=== PATIENT | female | born 1965 | race Caucasian/White ===

== ENCOUNTER 2016-09-08 11:15 | Emergency (ER) | payer MEDICAID ==
[~2016-09-08] VITALS: Ht 160 cm; Wt 63.5 kg
--- NOTE | 2016-09-08 11:18 | NUR ---
Pt assisted in restroom, unable to bear weight on left ankle. Pt states that she was hiking and slipped into a nightmute. Cardboard splint applied by EMS, pt refused transport.
[2016-09-08] MEDS ORDERED: IBUPROFEN 600 MG TABLET PO ONE (11:30)
--- NOTE | 2016-09-08 11:30 | NUR ---
Wheelchair pt to bed 7
--- NOTE | 2016-09-08 11:45 | NUR ---
Pt wet pants and wet shoe/sock removed. Warm blankets provided. Care endorsed to JENNIFER Bustos
--- NOTE | 2016-09-08 12:00 | NUR ---
Dr. Baker at bedside for evaluation
[2016-09-08 12:02] VITALS: BP 153/101; PULSE 101; RESP 18; TEMP 97.3; O2SAT 99
--- NOTE | 2016-09-08 12:08 | NUR ---
During pt assessment c/o 04/30 pain to left lower leg/ankle. pt informed that I had Motrin 600mg per Dr. Baker's order. Pt states she does not take pain medication. Informed her I could give her an ice pack which she agreed, then stated "Do I need to go to another hospital I am in so much pain" explain to the patient that we have Motrin to treat her pain, pt stated "I don't know if that will be enough" Informed pt I could ask Dr. Baker for different medication for pain managment. Pt stated "I don't take pain medication", Ice pack provided, in regard to the motrin 600mg pt stated "I will think about it"
--- NOTE | 2016-09-08 12:18 | NUR ---
Bedside commode provided for patient. Denied needing assistance
--- NOTE | 2016-09-08 12:45 | NUR ---
BOOT SPLINT APPLIED TO LEFT LEG, PT TOLERATED WELL, MEASURED FOR CRUTCHES AND DEMONSTRATED PROPER USE.
[2016-09-08 12:55] VITALS: BP 131/77; PULSE 88; RESP 16; TEMP 97.3; O2SAT 99
--- NOTE | 2016-09-08 12:55 | NUR ---
Patient given written and verbal discharge instructions and verbalizes understanding. ER MD discussed with patient the results and treatment provided. Given copies of tests performed in ER. Patient in stable condition. ID arm band removed. Rx of NONE given. Patient educated on pain management and to follow up with PMD. Pain Scale 0/10 Opportunity for questions provided and answered.
== END 2016-09-08 12:55 | disposition home or self-care (01) ==
LOC: SED 11:15
DX: S93.402A Sprain of unspecified ligament of left ankle, initial encounter (principal); S90.32XA Contusion of left foot, initial encounter; W19.XXXA Unspecified fall, initial encounter; Y93.89 Activity, other specified; Y92.89 Other specified places as the place of occurrence of the external cause; Y99.8 Other external cause status
CPT/HCPCS: 73650-TC; 99284

== ENCOUNTER 2019-03-11 16:23 | Outpatient (CLI) | payer OTHER | END 2019-03-11 21:15 | disposition home or self-care (01) | LOC: SUS 16:23 | PROVIDERS: ATTEND Internal Medicine | DX: E04.9 Nontoxic goiter, unspecified (principal); N20.0 Calculus of kidney | CPT/HCPCS: 76536-TC ==

== ENCOUNTER 2019-03-12 08:38 | Outpatient (CLI) | payer OTHER ==
[2019-03-12 10:41] LABS: BILIRUBIN,URINE NEGATIVE (NEGATIVE); BLOOD, URINE NEGATIVE (NEGATIVE); CLARITY/URINE CLEAR (CLEAR); GLUCOSE,URINE NEGATIVE (NEGATIVE); KETONES,URINE NEGATIVE (NEGATIVE); LEUKOCYTE ESTERASE ,URINE 2+ (NEGATIVE); NITRITE, URINE NEGATIVE (NEGATIVE); PROTEIN URINE NEGATIVE (NEGATIVE); UROBILINOGEN,URINE 0.2 (0.2-1.0)
[2019-03-12 10:44] LABS: EOSINOPHILS # (AUTO) 0.1 K/uL (0.0-0.4); EOSINOPHILS % (AUTO) 1.5 % (0.0-4.0); HEMATOCRIT 39.9 % (36-48); HEMOGLOBIN 13.6 g/dL (12.0-16.0); LYMPHOCYTES # (AUTO) 1.1 K/uL (1.0-5.5); LYMPHOCYTES % (AUTO) 23.3 % (20.5-51.5); MEAN CORPUSCULAR HEMOGLOBIN 30 pg (27-31); MEAN CORPUSCULAR HGB CONC 34 % (32-36); MEAN CORPUSCULAR VOLUME 86 fL (79.0-98.0); MONOCYTES # (AUTO) 0.3 K/uL (0.0-1.0); MONOCYTES % (AUTO) 6.8 % (1.7-9.3); NEUTROPHILS # (AUTO) 3.2 K/uL (1.8-7.7); NEUTROPHILS % (AUTO) 67.4 % (40.0-70.0); PLATELET COUNT (AUTO) 242 K/uL (130-430); RED BLOOD CELL COUNT(AUTO) 4.62 MIL/uL (4.2-6.2); WHITE BLOOD COUNT (AUTO) 4.8 K/uL (4.8-10.8)
[2019-03-12 10:44] LABS: COLOR,URINE STRAW (YELLOW)
[2019-03-12 11:01] LABS: PROTHROMBIN TIME 9.8 SECS (9.5-12.5)
[2019-03-12 11:07] LABS: TOTAL IRON BIND. CAPACITY 341 ug/dL (250-450)
[2019-03-12 11:08] LABS: CALCIUM 9.5 mg/dL (8.4-11.0); CREATININE 0.76 mg/dL (0.55-1.30); POTASSIUM 3.9 mmol/L (3.5-5.1); THYROID STIMULATING HORMONE 0.71 uIu/mL (0.34-4.82); TOTAL BILIRUBIN 0.3 mg/dL (0.0-1.0); URIC ACID 4.5 mg/dL (2.4-7.0)
[2019-03-12 11:28] LABS: BACTERIA,URINE RARE /HPF (None Seen); RBC,URINE 0-3 /HPF (0-3)
[2019-03-13 06:08] LABS: HEMOGLOBIN A1C 5.3 % (4.8-5.6)
== END 2019-03-12 20:55 | disposition home or self-care (01) ==
LOC: SMA 08:38
PROVIDERS: ATTEND Internal Medicine
DX: Z12.31 Encounter for screening mammogram for malignant neoplasm of breast (principal); Z00.01 Encounter for general adult medical examination with abnormal findings; N28.89 Other specified disorders of kidney and ureter; E04.9 Nontoxic goiter, unspecified
CPT/HCPCS: 36415; 76700-TC; 77067; 80053; 80061; 81000-TC; 82306; 82607; 83036; 83540-TC; 83550-TC; 84443-TC; 84550-TC; 85025; 85610-TC; 85730-TC

== ENCOUNTER 2019-03-13 17:13 | Outpatient (CLI) | payer OTHER | END 2019-03-13 21:07 | disposition home or self-care (01) | LOC: SCT 17:13 | PROVIDERS: ATTEND Internal Medicine | DX: N28.1 Cyst of kidney, acquired (principal); R16.1 Splenomegaly, not elsewhere classified; N39.0 Urinary tract infection, site not specified | CPT/HCPCS: 87086 ==

== ENCOUNTER 2019-04-04 20:13 | Emergency (ER) | payer OTHER ==
[~2019-04-04] VITALS: Ht 160 cm; Wt 61.2 kg
[2019-04-04 20:15] VITALS: BP_SYST 133
--- NOTE | 2019-04-04 20:16 | NUR ---
Patient to ER bed 5 to gown for evaluation. Side rails up.
--- NOTE | 2019-04-04 20:16 | NUR ---
Pt complains of sore throat for the past 6 days and right sided facial swelling with swollen right eye lid for the last 3 days. Pt states she went to Dr. Resendez's office to get it checked but it was too busy. Per pt she has body aches for the past few days and low grade fever of 100.9. No other injuries/complaints per patient or noted.
--- NOTE | 2019-04-04 20:17 | NUR ---
ER Dr. Lowery at bedside examining patient.
[2019-04-04] MEDS ORDERED: SULFAMETHOXAZOLE/TRIMETHOPR DS 1 TABLET PO ONE (20:30)
[2019-04-04] MEDS ORDERED: ACETAMINOPHEN 325 MG TABLET PO ONE (20:30)
[2019-04-04 20:46] VITALS: BP_SYST 133
--- NOTE | 2019-04-04 20:46 | NUR ---
Patient given written and verbal discharge instructions and verbalizes understanding. ER MD discussed with patient the results and treatment provided. Patient in stable condition. ID arm band removed. Rx of Zithromax and Bactrim given. Patient educated on pain management and to follow up with PMD. Pain Scale 0. Opportunity for questions provided and answered. Medication side effect fact sheet provided.
== END 2019-04-04 20:46 | disposition home or self-care (01) ==
LOC: SED 20:13
DX: H01.003 Unspecified blepharitis right eye, unspecified eyelid (principal); R05 Cough
CPT/HCPCS: 99283